=== PATIENT | male | born 1955 | race Caucasian/White ===

== ENCOUNTER 2019-04-01 15:25 | Emergency (ER) | payer OTHER ==
[~2019-04-01] VITALS: Ht 165.1 cm; Wt 74.8 kg
[~2019-04-01 15:25] MED LIST: ASA81 MG PO; LANTUS SOL100 UNIT/1 SQ; METFORMIN HCL500 MG PO; MUPIROCIN15 GM TOP; RAMIPRIL10 MG PO; SIMVASTATIN10 MG PO
[2019-04-01] MEDS ORDERED: SYNJARDY 12.5-1 EACH (15:45)
== END 2019-04-01 17:16 | disposition home or self-care (01) ==
LOC: ER 15:25
DX: S91.321A Laceration with foreign body, right foot, initial encounter (principal); W45.0XXA Nail entering through skin, initial encounter; Y93.89 Activity, other specified; Y92.098 Other place in other non-institutional residence as the place of occurrence of the external cause; Y99.8 Other external cause status

== ENCOUNTER 2022-12-02 18:45 | Emergency (ER) | payer OTHER ==
[~2022-12-02] VITALS: Ht 165.1 cm; Wt 77.1 kg
[~2022-12-02 18:45] MED LIST changes: +SYNJARDY 12.5-1 EACH
[2022-12-02] MEDS ORDERED: CLARITIN10 MG (19:38)
[2022-12-02] MEDS ORDERED: PRILOSEC OTC20 MG (19:38)
[2022-12-02] MEDS ORDERED: DUI500 PO (20:16)
== END 2022-12-02 20:35 | disposition home or self-care (01) ==
LOC: ER 18:45
DX: L03.012 Cellulitis of left finger (principal); Z88.0 Allergy status to penicillin; E11.9 Type 2 diabetes mellitus without complications; Z79.4 Long term (current) use of insulin; E05.80 Other thyrotoxicosis without thyrotoxic crisis or storm

== ENCOUNTER 2023-11-05 17:31 | Emergency (ER) | payer OTHER ==
[~2023-11-05] VITALS: Ht 162.6 cm; Wt 74.8 kg
[~2023-11-05 17:31] MED LIST changes: +CLARITIN10 MG; +DUI500 PO; +PRILOSEC OTC20 MG
[2023-11-05] MEDS ORDERED: MECLIZINE HCL 12.5 MG TABLET PO ONE (18:15)
[2023-11-05 18:41] LABS: HEMATOCRIT 42.3 % (39.0-48.0); HEMOGLOBIN 14.1 g/dL (13-16.00); MEAN CELL VOLUME 88.7 fL (80.0-100.00); MEAN CORPUSCULAR HEMOGLOBIN 29.5 pg (27.00-32.0); MEAN CORPUSCULAR HGB CONC 33.3 g/dl (32.0-36.0); PLATELET COUNT 251 K/uL (150-450); RED BLOOD COUNT 4.77 M/uL (4.00-6.00); RED CELL DISTRIBUTION WIDTH 13.7 % (11.5-14.5)
[2023-11-05 19:21] LABS: CALCIUM 9.2 mg/dL (8.5-10.1); CREATININE SERUM 1.72 mg/dL (0.70-1.30); GFR 39.86; POTASSIUM 4.43 mEq/L (3.5-5.1)
== END 2023-11-05 22:57 | disposition home or self-care (01) ==
LOC: ER 17:31
PROVIDERS: Emergency Medicine
DX: R42 Dizziness and giddiness (principal); I10 Essential (primary) hypertension; E11.9 Type 2 diabetes mellitus without complications; Z79.4 Long term (current) use of insulin; Z88.0 Allergy status to penicillin